=== PATIENT | male | born 1965 | race Two or more races ===

== ENCOUNTER → 2017-07-26 | Outpatient (CLI) | payer SELFPAY | LOC: HHS 09:51 | DX: Z12.83 Encounter for screening for malignant neoplasm of skin (principal) ==

== ENCOUNTER → 2018-04-11 | Outpatient (CLI) | payer OTHER ==
[2018-04-11 12:40] LABS: ABSOLUTE EOSINOPHILS # (AUTO) 0.1 10^3/uL (0.0-0.6); ABSOLUTE LYMPHOCYTES (AUTO) 1.9 10^3/uL (0.5-4.7); ABSOLUTE MONOCYTES (AUTO) 0.8 10^3/uL (0.1-1.4); ABSOLUTE NEUT (AUTO) 3.6 10^3/uL (1.7-8.2); BASOPHILS % (AUTO) 0.3 % (0-2); EOSINOPHILS % (AUTO) 1.5 % (0-6); HEMATOCRIT 42.7 % (37.9-51.0); HEMOGLOBIN 15.2 g/dL (13.5-17.0); LYMPHOCYTES % (AUTO) 29.3 % (13-45); MEAN CORPUSCULAR HEMOGLOBIN 31.1 pg (27.0-33.4); MEAN CORPUSCULAR HGB CONC 35.7 g/dL (32.0-36.0); MEAN CORPUSCULAR VOLUME 87 fl (80-97); MONOCYTES % (AUTO) 12.2 % (3-13); PLATELET COUNT 196 10^3/uL (150-450); SEGMENTED NEUTROPHILS % (AUTO) 56.7 % (42-78); TOTAL CELLS COUNTED % (AUTO) 100 %; WHITE BLOOD COUNT 6.3 10^3/uL (4.0-10.5)
[2018-04-11 13:02] LABS: ALANINE AMINOTRANSFERASE 64 U/L (21-72); ALBUMIN 4.2 g/dL (3.5-5.0); ALKALINE PHOSPHATASE 76 U/L (38-126); ANION GAP 8 (5-19); ASPARTATE AMINO TRANSFERASE 64 U/L (17-59); BILIRUBIN,DIRECT 0.1 mg/dL (0.0-0.4); BILIRUBIN,TOTAL 0.5 mg/dL (0.2-1.3); BLOOD UREA NITROGEN 15 mg/dL (7-20); CALCIUM 9.1 mg/dL (8.4-10.2); CARBON DIOXIDE 29 mmol/L (22-30); CHLORIDE 105 mmol/L (98-107); CHOLESTEROL 191.25 mg/dL (0-200); GLUCOSE 93 mg/dL (75-110); POTASSIUM 4.1 mmol/L (3.6-5.0); SODIUM 141.8 mmol/L (137-145); TRIGLYCERIDES 80 mg/dL (<150)
[2018-04-11 13:13] LABS: DIRECT LDL 139 mg/dL (<100)
== END ==
LOC: CCC 11:28
DX: I10 Essential (primary) hypertension (principal)
CPT/HCPCS: 36415; 80053; 80061; 83036; 84443; 85025

== ENCOUNTER → 2018-07-03 | Outpatient (CLI) | payer OTHER ==
--- NOTE | 2018-07-04 08:43 | RADIOLOGY REPORT (SQ) ---
EXAM DESCRIPTION: T SPINE AP/LAT COMPLETED DATE/TIME: 07/03/2018 5:17 pm REASON FOR STUDY: DORSALGIA M54.9 DORSALGIA, UNSPECIFIED COMPARISON: None. NUMBER OF VIEWS: Two views. TECHNIQUE: AP and lateral radiographic images acquired of the thoracic spine. LIMITATIONS: None. FINDINGS: MINERALIZATION: Normal. ALIGNMENT: Normal. No scoliosis. VERTEBRAE: No fracture or bone lesion. Maintained height, normal segmentation. DISCS: No significant loss of height or significant narrowing. No large osteophytes. HARDWARE: None in the spine. MEDIASTINUM AND SOFT TISSUES: Normal heart size and aortic contour. No soft tissue abnormality. VISUALIZED LUNG VERDUGO: Clear. OTHER: No other significant finding. IMPRESSION: NO SIGNIFICANT RADIOGRAPHIC FINDING IN THE THORACIC SPINE. TECHNICAL DOCUMENTATION: JOB ID: [id number] [email or web address]- All Rights Reserved Reading location - IP/workstation name: [email or web address]
== END ==
LOC: CCC 16:36
DX: M54.9 Dorsalgia, unspecified (principal)
CPT/HCPCS: 72070

== ENCOUNTER 2018-08-17 20:00 | Emergency (ER) | payer SELFPAY ==
[2018-08-18] MEDS ORDERED: NORMAL SALINE 1000 ML 1,000 ML IV ONE (00:26)
[2018-08-18] MEDS ORDERED: CLINDAMYCIN 900 MG/D5W RTU 900 MG/50 ML RTUPB IV ONE (00:26)
[2018-08-18] MEDS ORDERED: ONDANSETRON HCL INJ/PF 4 MG/2 ML SDV IV ONE (00:27)
[2018-08-18] MEDS ORDERED: MORPHINE SULFATE 10 MG/ML INJ IV ONE (00:27)
[2018-08-18] MEDS ORDERED: DEXAMETHASONE SOD PHOS INJ 10 MG/1 ML VIAL IV ONE (00:28)
[2018-08-18] MEDS ORDERED: ACETAMINOPHEN 325 MG TABLET PO ONE (00:28)
[2018-08-18 01:12] LABS: ABSOLUTE LYMPHOCYTES (AUTO) 1.9 10^3/uL (0.5-4.7); ABSOLUTE MONOCYTES (AUTO) 1.9 10^3/uL (0.1-1.4); ABSOLUTE NEUT (AUTO) 5.6 10^3/uL (1.7-8.2); BASOPHILS % (AUTO) 0.2 % (0-2); HEMATOCRIT 46.7 % (37.9-51.0); HEMOGLOBIN 16.2 g/dL (13.5-17.0); LYMPHOCYTES % (AUTO) 20.4 % (13-45); MEAN CORPUSCULAR HEMOGLOBIN 30.3 pg (27.0-33.4); MEAN CORPUSCULAR HGB CONC 34.7 g/dL (32.0-36.0); MEAN CORPUSCULAR VOLUME 87 fl (80-97); MONOCYTES % (AUTO) 19.9 % (3-13); PLATELET COUNT 188 10^3/uL (150-450); RED BLOOD COUNT 5.35 10^6/uL (4.35-5.55); RED CELL DISTRIBUTION WIDTH 12.9 % (11.5-14.0); SEGMENTED NEUTROPHILS % (AUTO) 59.5 % (42-78); TOTAL CELLS COUNTED % (AUTO) 100 %; WHITE BLOOD COUNT 9.3 10^3/uL (4.0-10.5)
[2018-08-18] MEDS ORDERED: KETOROLAC TROMETHAMINE INJ/PF 30 MG/1 ML SDV IV ONE (01:20)
[2018-08-18 01:24] LABS: ALANINE AMINOTRANSFERASE 40 U/L (21-72); ALBUMIN 4.6 g/dL (3.5-5.0); ALKALINE PHOSPHATASE 68 U/L (38-126); ANION GAP 10 (5-19); ASPARTATE AMINO TRANSFERASE 54 U/L (17-59); BILIRUBIN,DIRECT 0.2 mg/dL (0.0-0.4); BILIRUBIN,TOTAL 0.8 mg/dL (0.2-1.3); BLOOD UREA NITROGEN 14 mg/dL (7-20); CALCIUM 9.2 mg/dL (8.4-10.2); CARBON DIOXIDE 33 mmol/L (22-30); CHLORIDE 97 mmol/L (98-107); GLUCOSE 90 mg/dL (75-110); POTASSIUM 4.1 mmol/L (3.6-5.0); SODIUM 140.3 mmol/L (137-145)
[2018-08-18 01:30] LABS: INTERNATIONAL RATION (INR) 1.02; PROTHROMBIN TIME 13.4 SEC (11.4-15.4)
[2018-08-18 01:31] LABS: PARTIAL THROMBOPLASTIN TIME 36.3 SEC (23.5-35.8)
[2018-08-18 03:03] VITALS: BP 132/75
[2018-08-18 03:06] LABS: APPEARANCE,URINE CLEAR; BILIRUBIN,URINE NEGATIVE (NEGATIVE); COLOR,URINE STRAW; GLUCOSE, URINE NEGATIVE (NEGATIVE); KETONES,URINE NEGATIVE (NEGATIVE); LEUKOCYTE ESTERASE,URINE NEGATIVE (NEGATIVE); NITRITE,URINE NEGATIVE (NEGATIVE); PROTEIN,URINE NEGATIVE (NEGATIVE); URINE SPECIFIC GRAVITY 1.008; UROBILINOGEN,URINE NEGATIVE mg/dL (<2.0)
--- NOTE | 2018-08-18 03:20 | ER Document Report ---
ED ENT - General Chief Complaint: Mouth Problem Stated Complaint: THROAT PAIN Time Seen by Provider: 08/17/18 23:56 Mode of Arrival: Ambulatory Information source: Patient TRAVEL OUTSIDE OF THE [place] IN LAST 30 DAYS: No - HPI Patient complains to provider of: Throat problem Onset: Other - Ongoing since the past 5 days. Onset/Duration: Sudden Quality of pain: Sharp Severity: Moderate Pain Level: 3 Location of pain: Throat Associated symptoms: Sore throat, Swollen glands, Other - Mouth sores Similar symptoms previously: No Recently seen / treated by doctor: No - Related Data Allergies/Adverse Reactions: Penicillins Allergy (Verified 08/18/18 00:36) Past Medical History - Social History Smoking Status: Never Smoker Chew tobacco use (# tins/day): No Frequency of alcohol use: None Drug Abuse: None Family History: Reviewed & Not Pertinent Patient has suicidal ideation: No Patient has homicidal ideation: No Renal/ Medical History: Denies: Hx Peritoneal Dialysis Review of Systems - Review of Systems Constitutional: Fever EENT: Throat pain, Mouth pain, Other - Sore throat Cardiovascular: No symptoms reported Respiratory: No symptoms reported Gastrointestinal: No symptoms reported Genitourinary: No symptoms reported Male Genitourinary: No symptoms reported Musculoskeletal: No symptoms reported Skin: No symptoms reported Hematologic/Lymphatic: No symptoms reported Neurological/Psychological: No symptoms reported -: Yes All other systems reviewed and negative Physical Exam - Vital signs Vitals: Temp Pulse Resp BP Pulse Ox 101.8 F H 99 16 137/84 H 98 08/17/18 20:32 08/17/18 20:32 08/17/18 20:32 08/17/18 20:32 08/17/18 20:32 Interpretation: Normal - General General appearance: Appears well, Alert - HEENT Head: Normocephalic, Atraumatic Eyes: Normal Conjunctiva: Normal Cornea: Normal Pupils: PERRL Mouth/Lips: Lesions, Other - Mild soreness Mucous membranes: Moist, Other - Halitosis is present. Pharynx: Erythema, Tonsillar hypertrophy Neck: Anterior cervical chain - Respiratory Respiratory status: No respiratory distress Chest status: Nontender Breath sounds: Normal Chest palpation: Normal - Cardiovascular Rhythm: Regular Heart sounds: Normal auscultation Murmur: No - Abdominal Inspection: Normal Distension: No distension Bowel sounds: Normal Tenderness: Nontender Organomegaly: No organomegaly - Back Back: Normal, Nontender - Extremities General upper extremity: Normal inspection, Nontender, Normal color, Normal ROM, Normal temperature General lower extremity: Normal inspection, Nontender, Normal color, Normal ROM, Normal temperature, Normal weight bearing. No: Silverio's sign - Neurological Neuro grossly intact: Yes Cognition: Normal Orientation: AAOx4 Nacho Coma Scale Eye Opening: Spontaneous Nacho Coma Scale Verbal: Oriented Nacho Coma Scale Motor: Obeys Commands [place] Coma Scale Total: 15 Speech: Normal Motor strength normal: LUE, RUE, LLE, RLE Sensory: Normal - Psychological Associated symptoms: Normal affect, Normal mood - Skin Skin Temperature: Warm Skin Moisture: Dry Skin Color: Normal Course - Re-evaluation Re-evalutation: 08/18/18 03:18 Patient is feeling much better and wants to be discharged home. - Vital Signs Vital signs: Temp Pulse Resp BP Pulse Ox 99.3 F 99 15 132/75 H 97 08/18/18 03:01 08/17/18 20:32 08/18/18 03:01 08/18/18 03:01 08/18/18 03:01 - Laboratory Result Diagrams: 08/18/18 01:00 08/18/18 01:00 Laboratory results interpreted by me: 08/18/18 08/18/18 08/18/18 01:00 01:00 01:00 Monocytes % 19.9 H Absolute Monocytes 1.9 H APTT 36.3 H Chloride 97 L Carbon Dioxide 33 H Discharge - Discharge Clinical Impression: Acute pharyngitis Qualifiers: Pharyngitis/tonsillitis etiology: unspecified etiology Qualified Code(s): J02.9 - Acute pharyngitis, unspecified Acute tonsillitis Qualifiers: Pharyngitis/tonsillitis etiology: unspecified etiology Qualified Code(s): J03.90 - Acute tonsillitis, unspecified URI (upper respiratory infection) Qualifiers: URI type: unspecified URI Qualified Code(s): J06.9 - Acute upper respiratory infection, unspecified Condition: Stable Disposition: HOME, SELF-CARE Instructions: Upper Respiratory Illness ([facility]), Fever ([facility]), Tonsillitis ([facility]) Additional Instructions: Please follow-up with your doctor on Monday morning. Take your medications as p rescribed. Return to the emergency room if your condition worsens. Prescriptions: Clindamycin HCl [Cleocin 150 mg Capsule] 450 mg PO TID 10 Days #90 capsule Ibuprofen [Ibu] 800 mg PO HSP PRN #20 tablet PRN Reason: Pain Scale Of 3 Ondansetron [Zofran Odt 4 mg Tablet] 1 tab PO Q4H PRN #20 tab.rapdis PRN Reason: For Nausea/Vomiting Referrals: KERI ESTEBAN MD [ACTIVE STAFF] - Follow up as needed
== END 2018-08-18 03:30 | disposition home or self-care (01) ==
LOC: ER 20:00
DX: J03.90 Acute tonsillitis, unspecified (principal); J06.9 Acute upper respiratory infection, unspecified; K13.79 Other lesions of oral mucosa; R50.9 Fever, unspecified; R19.6 Halitosis; Z88.0 Allergy status to penicillin
CPT/HCPCS: 99283; 96375; 96365; 96366; 36415; 87040; 87070; 87086; 87880; 85025; 85610; 85730; 80053; 81001; 83605; J3490; J2405; J7030; J1100

== ENCOUNTER 2019-04-13 10:51 | Emergency (ER) | payer OTHER ==
[2019-04-13] MEDS ORDERED: ONDANSETRON 4 MG TAB.RAPDIS PO ONE (11:11)
[2019-04-13] MEDS ORDERED: NORMAL SALINE 1000 ML 1,000 ML IV ONE (11:12)
--- NOTE | 2019-04-13 11:17 | ER Document Report ---
ED Medical Screen (RME) - General Chief Complaint: Vomiting/Diarrhea Stated Complaint: BACK PAIN,VOMITING Time Seen by Provider: 04/13/19 11:06 Notes: HPI: 54-year-old male presenting to the emergency department with multiple complaints. Patient states that 2 days ago he was moving his father and after moving his father developed an exertional type chest discomfort and back discomfort. Does not know if he hurt his back. Patient states that the discomfort continued yesterday and he began having nausea vomiting and diarrhea. States he threw up at least 9 times. Complains of mild epigastric and left- sided abdominal cramping. No fever. Patient also complains of not being able to sleep at night because he has a constant sense of agitation or flight of ideas during the evening I have greeted and performed a rapid initial assessment of this patient. A comprehensive ED assessment and evaluation of the patient, analysis of test results and completion of the medical decision making process will be conducted by additional ED providers PHYSICAL EXAMINATION: GENERAL: Well-appearing, well-nourished and in mild acute distress. HEAD: Atraumatic, normocephalic. EYES: sclera anicteric, conjunctiva are normal. ENT: Moist mucous membranes. NECK: Normal range of motion LUNGS: Normal work of breathing, clear to auscultation HEART: 2+ radial pulses bilaterally, regular rate and rhythm ABD: limited by positioning for exam in triage. Mild tenderness in the left lateral abdomen on palpation EXTREMITIES: no pitting or edema. No cyanosis. NEUROLOGICAL: No focal neurological deficits. Moves all extremities spontaneously and on command. PSYCH: Normal mood, normal affect. SKIN: Warm, Dry, normal turgor, no rashes or lesions noted. TRAVEL OUTSIDE OF THE [place] IN LAST 30 DAYS: No - Related Data Allergies/Adverse Reactions: Penicillins Allergy (Verified 04/13/19 11:07) Home Medications: lisinopril/hctz. amolidipine. omeprazole Past Medical History - Social History Chew tobacco use (# tins/day): No Frequency of alcohol use: None Drug Abuse: None Renal/ Medical History: Denies: Hx Peritoneal Dialysis Physical Exam - Vital signs Vitals: Temp Pulse Resp BP Pulse Ox 98.9 F 102 H 18 148/101 H 97 04/13/19 11:03 04/13/19 11:03 04/13/19 11:03 04/13/19 11:03 04/13/19 11:03 Course - Vital Signs Vital signs: Temp Pulse Resp BP Pulse Ox 98.9 F 102 H 18 148/101 H 97 04/13/19 11:03 04/13/19 11:03 04/13/19 11:03 04/13/19 11:03 04/13/19 11:03
[2019-04-13 11:41] LABS: APPEARANCE,URINE CLEAR; BILIRUBIN,URINE NEGATIVE (NEGATIVE); COLOR,URINE YELLOW; GLUCOSE, URINE NEGATIVE (NEGATIVE); KETONES,URINE NEGATIVE (NEGATIVE); LEUKOCYTE ESTERASE,URINE NEGATIVE (NEGATIVE); NITRITE,URINE NEGATIVE (NEGATIVE); PROTEIN,URINE 100 mg/dL (NEGATIVE); URINE SPECIFIC GRAVITY 1.027; UROBILINOGEN,URINE NEGATIVE mg/dL (<2.0)
--- NOTE | 2019-04-13 12:12 | RADIOLOGY REPORT (SQ) ---
EXAM DESCRIPTION: CHEST 2 VIEWS COMPLETED DATE/TIME: 04/13/2019 11:57 am REASON FOR STUDY: chest pain COMPARISON: None. EXAM PARAMETERS: NUMBER OF VIEWS: two views TECHNIQUE: Digital Frontal and Lateral radiographic views of the chest acquired. RADIATION DOSE: NA LIMITATIONS: none FINDINGS: LUNGS AND PLEURA: No opacities, masses or pneumothorax. No pleural effusion. MEDIASTINUM AND HILAR STRUCTURES: No masses or contour abnormalities. HEART AND VASCULAR STRUCTURES: Heart normal size. No evidence for failure. BONES: No acute findings. HARDWARE: None in the chest. OTHER: No other significant finding. IMPRESSION: NO ACUTE RADIOGRAPHIC FINDING IN THE CHEST. TECHNICAL DOCUMENTATION: JOB ID: [id number] 2010 [employer]- All Rights Reserved Reading location - IP/workstation name: [email or web address]
[2019-04-13 12:15] LABS: ABSOLUTE LYMPHOCYTES (AUTO) 0.7 10^3/uL (0.5-4.7); ABSOLUTE MONOCYTES (AUTO) 1.6 10^3/uL (0.1-1.4); BASOPHILS % (AUTO) 0.1 % (0-2); HEMATOCRIT 47.7 % (37.9-51.0); LYMPHOCYTES % (AUTO) 5.3 % (13-45); MEAN CORPUSCULAR HGB CONC 35.6 g/dL (32.0-36.0); MEAN CORPUSCULAR VOLUME 87 fl (80-97); MONOCYTES % (AUTO) 12.2 % (3-13); PLATELET COUNT 186 10^3/uL (150-450); RED BLOOD COUNT 5.49 10^6/uL (4.35-5.55); RED CELL DISTRIBUTION WIDTH 13.6 % (11.5-14.0); SEGMENTED NEUTROPHILS % (AUTO) 82.4 % (42-78); TOTAL CELLS COUNTED % (AUTO) 100 %; WHITE BLOOD COUNT 13.4 10^3/uL (4.0-10.5)
[2019-04-13 12:32] LABS: ALBUMIN 4.5 g/dL (3.5-5.0); ALKALINE PHOSPHATASE 72 U/L (38-126); ANION GAP 13 (5-19); ASPARTATE AMINO TRANSFERASE 54 U/L (17-59); BILIRUBIN,DIRECT 0.2 mg/dL (0.0-0.4); BLOOD UREA NITROGEN 23 mg/dL (7-20); CALCIUM 8.8 mg/dL (8.4-10.2); CARBON DIOXIDE 26 mmol/L (22-30); CHLORIDE 98 mmol/L (98-107); GLUCOSE 120 mg/dL (75-110); POTASSIUM 3.1 mmol/L (3.6-5.0); TOTAL PROTEIN 7.8 g/dL (6.3-8.2)
[2019-04-13] MEDS ORDERED: MORPHINE SULFATE 10 MG/ML INJ IV ONE (14:15)
[2019-04-13] MEDS ORDERED: POTASSIUM CHLORIDE 20 MEQ PACKET PO ONE (15:11)
--- NOTE | 2019-04-13 15:17 | ER Document Report ---
ED General - General TRAVEL OUTSIDE OF THE [place] IN LAST 30 DAYS: No - Related Data Home Medications: lisinopril/hctz. amolidipine. omeprazole <RONNA ZAMBRANO - Last Filed: 04/13/19 18:10> <ROSYPATRICIAARA - Last Filed: 04/13/19 20:17> - General Chief Complaint: Vomiting/Diarrhea Stated Complaint: BACK PAIN,VOMITING Time Seen by Provider: 04/13/19 11:06 Notes: 54-year-old male presents with central intermittent chest pain and low back pain for the past 2 days. Patient states it started after transferring dad from wheelchair to recliner. Patient states he also had nausea, vomiting, and diarrhea that started yesterday. Pt also has left sided abdominal pain. Patient denies any blood in emesis or stool. Patient denies any fever. (RONNA ZAMBRANO) - Related Data Allergies/Adverse Reactions: Penicillins Allergy (Verified 04/13/19 11:07) Past Medical History - Social History Smoking Status: Unknown if Ever Smoked Chew tobacco use (# tins/day): No Frequency of alcohol use: None Drug Abuse: None Family History: Reviewed & Not Pertinent Patient has suicidal ideation: No Patient has homicidal ideation: No Renal/ Medical History: Denies: Hx Peritoneal Dialysis <RONNA ZAMBRANO - Last Filed: 04/13/19 18:10> Review of Systems <RONNA ZAMBRANO - Last Filed: 04/13/19 18:10> - Review of Systems Notes: Constitutional: Negative for fever. HENT: Negative for sore throat. Eyes: Negative for visual changes. Cardiovascular: Positive for chest pain. Respiratory: Negative for shortness of breath. Gastrointestinal: Positive for abdominal pain, vomiting or diarrhea. Genitourinary: Negative for dysuria. Musculoskeletal: Positive for back pain. Skin: Negative for rash. Neurological: Negative for headaches, weakness or numbness. 10 point ROS negative except as marked above and in HPI. (RONNA ZAMBRANO) Physical Exam <RONNA ZAMBRANO - Last Filed: 04/13/19 18:10> - Vital signs Vitals: Temp Pulse Resp BP Pulse Ox 98.9 F 102 H 18 148/101 H 97 04/13/19 11:03 04/13/19 11:03 04/13/19 11:03 04/13/19 11:03 04/13/19 11:03 - Notes Notes: GENERAL: Well-appearing, well-nourished and in no acute distress. HEAD: Atraumatic, normocephalic. EYES: Extraocular movements intact, sclera anicteric, conjunctiva are normal. NECK: Normal range of motion, supple without lymphadenopathy or JVD. LUNGS: Breath sounds clear to auscultation bilaterally and equal. No wheezes rales or rhonchi. HEART: Regular rate and rhythm without murmurs, rubs or gallops. ABDOMEN: Soft, tenderness to left side. No guarding, no rebound. No masses appreciated. BACK: Tenderness to L spine. EXTREMITIES: Normal range of motion, no pitting or edema. No clubbing or cyanosis. NEUROLOGICAL: Cranial nerves II through XII grossly intact. Normal speech, normal gait. PSYCH: Normal mood, normal affect. SKIN: Warm, Dry, normal turgor, no rashes or lesions noted. (RONNA ZAMBRANO) Course - Laboratory Result Diagrams: 04/13/19 17:03 04/13/19 11:52 <RONNA ZAMBRANO - Last Filed: 04/13/19 18:10> - Laboratory Result Diagrams: 04/13/19 17:03 04/13/19 11:52 <KISHAN GALLEGOS - Last Filed: 04/13/19 20:17> - Re-evaluation Re-evalutation: 04/13/19 Nontoxic, well appearing 54 y/o male presents with chest pain/low back pain after transferring his father from wheelchair to recliner two days ago. Pt also had n//v/d that started yesterday with left sided abd pain. Abd soft, tenderness to left side. Nonsurgical abdomen. Chest - reproducible to palpation. RRR. Lungs CTA b/l. L spine tenderness. Initial workup shows WBC 13.4, CMP K 3.1, BUN 23. Trop 0.033 (nothing to compare to in system). Morphine, CT abdomen/pelvis with IV contrast, L spine XR ordered. 04/13/19 16:36 Trop 0.123. NSTEMI. Initiated ASA and heparin. Called [facility] to initiate transfer. Spoke to Paula. 04/13/19 16:44 Informed pt that he is having a NSTEMI and that he needs to be transferred. 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 Informed pt that he needs to be transferred due to no hop farmer here at this facility and he may if he does not receive care. Pt voices understanding. 04/13/19 17:17 Spoke to geological engineering teacher remotely piloted vehicle controller, Dr. Lupillo Christian, at [facility] who states pt sounds appropriate for transfer. Requests speaking to hospitalist for admission. Transfer Center to page out hospitalist remotely piloted vehicle controller. 04/13/19 17:[address] Annalise Gupta, hospitalist, who accepted pt for transfer. (RONNA ZAMBRANO) 04/13/19 20:17 Report received from BERNICE Hightower. Transport crew is here for patient. Patient complains of mild dizziness, vital signs otherwise stable. Patient stable for transfer at this time. (KISHAN GALLEGOS) - Vital Signs Vital signs: Temp Pulse Resp BP Pulse Ox 99.0 F 102 H 19 120/76 97 04/13/19 19:53 04/13/19 11:03 04/13/19 20:07 04/13/19 20:07 04/13/19 20:07 - Laboratory Laboratory results interpreted by me: 04/13/19 04/13/19 04/13/19 11:24 11:52 11:52 WBC 13.4 H Lymph % (Auto) 5.3 L Gall[place] % (Auto) Absolute Neuts (auto) 11.0 H Absolute Monos (auto) 1.6 H Seg Neutrophils % 82.4 H Potassium 3.1 L BUN 23 H Glucose 120 H Urine Protein 100 H Urine Blood SMALL H 04/13/19 17:03 WBC 14.0 H Lymph % (Auto) 8.0 L Gall[place] % (Auto) 13.2 H Absolute Neuts (auto) 11.0 H Absolute Monos (auto) 1.8 H Seg Neutrophils % 78.6 H Potassium BUN Glucose Urine Protein Urine Blood Discharge - Discharge Admitting Provider: Dr. Gupta <RONNA ZAMBRANO - Last Filed: 04/13/19 18:10> <KISHAN GALLEGOS - Last Filed: 04/13/19 20:17> - Discharge Clinical Impression: NSTEMI (non-ST elevated myocardial infarction), Nausea, vomiting, and diarrhea Chest pain Qualifiers: Chest pain type: unspecified Qualified Code(s): R07.9 - Chest pain, unspecified Low back pain Qualifiers: Chronicity: acute Back pain laterality: midline Sciatica presence: without sciatica Qualified Code(s): M54.5 - Low back pain Abdominal pain Qualifiers: Abdominal location: unspecified location Qualified Code(s): R10.9 - Unspecified abdominal pain Condition: Stable Disposition: [facility]
--- NOTE | 2019-04-13 15:38 | RADIOLOGY REPORT (SQ) ---
EXAM DESCRIPTION: CT ABD/PELVIS WITH IV ONLY COMPLETED DATE/TIME: 04/13/2019 3:08 pm REASON FOR STUDY: abd pain, nausea/vomiting/diarrhea, back pain COMPARISON: None. TECHNIQUE: CT scan of the abdomen and pelvis performed using helical scanning technique with dynamic intravenous contrast injection. No oral contrast. Images reviewed with lung, soft tissue, and bone windows. Reconstructed coronal and sagittal MPR images reviewed. Delayed images for evaluation of the urinary system also acquired. All images stored on PACS. All CT scanners at this facility use dose modulation, iterative reconstruction, and/or weight based d osing when appropriate to reduce radiation dose to as low as reasonably achievable (ALARA). [facility]: Dose Right [facility]: CareDose [facility]: Dose Right [facility]: Teradose 4D [facility]: [employer] CONTRAST TYPE AND DOSE: contrast/concentration: Isovue 350.00 mg/ml; Total Contrast Delivered: 100.0 ml; Total Saline Delivered: 72.0 ml RENAL FUNCTION: BUN 23 creatinine 0.8. RADIATION DOSE: CT Rad equipment meets quality standard of care and radiation dose reduction techniq ues were employed. CTDIvol: 11.9 - 16.4 mGy. DLP: 1722 mGy-cm.. LIMITATIONS: None. FINDINGS: LOWER CHEST: No significant findings. No nodules or infiltrates. LIVER: Normal size. Diffuse fatty infiltration. No masses. No dilated ducts. SPLEEN: Normal size. No focal lesions. PANCREAS: No masses. No significant calcifications. No adjacent inflammation or peripancreatic fluid collections. Pancreatic duct not dilated. GALLBLADDER: No identified stones by CT criteria. No inflammatory changes to suggest cholecystitis. ADRENAL GLANDS: No significant masses or asymmetry. RIGHT KIDNEY AND URETER: No solid masses. No significant calcifications. No hydronephrosis or hyd roureter. LEFT KIDNEY AND URETER: No solid masses. No significant calcifications. No hydronephrosis or hydr oureter. AORTA AND VESSELS: No aneurysm. No dissection. Renal arteries, SMA, celiac without stenosis. RETROPERITONEUM: No retroperitoneal adenopathy, hemorrhage or masses. BOWEL AND PERITONEAL CAVITY: Dilated small bowel loops in the midabdomen. The distal small bowel is not distended. No masses or inflammatory changes. No free fluid or peritoneal masses. APPENDIX: Normal. PELVIS: No mass. No free fluid. Normal bladder. ABDOMINAL WALL: No masses. No hernias. BONES: No significant or acute findings. OTHER: No other significant finding. IMPRESSION: 1. DILATED SMALL BOWEL LOOPS IN THE MID ABDOMEN. THE DISTAL SMALL BOWEL IS NOT DISTENDED. CONCERNIN G FOR DEVELOPING MECHANICAL OBSTRUCTION. 2. FATTY INFILTRATION OF THE LIVER. 3. NO OTHER SIGNIFICANT OR ACUTE FINDING IN THE ABDOMEN OR PELVIS ON CT SCAN WITH IV CONTRAST. TECHNICAL DOCUMENTATION: JOB ID: [id number] Quality ID # [id number]: Final reports with documentation of one or more dose reduction techniques (e.g., Au tomated exposure control, adjustment of the mA and/or kV according to patient size, use of iterative reconstruction technique) 2010 [employer]- All Rights Reserved Reading location - IP/workstation name: [email or web address]
--- NOTE | 2019-04-13 15:39 | RADIOLOGY REPORT (SQ) ---
EXAM DESCRIPTION: L SPINE WHOLE COMPLETED DATE/TIME: 04/13/2019 3:24 pm REASON FOR STUDY: low back pain COMPARISON: None. NUMBER OF VIEWS: Five views including obliques. TECHNIQUE: AP, lateral, oblique, and sacral radiographic images acquired of the lumbar spine. LIMITATIONS: None. FINDINGS: MINERALIZATION: Normal. SEGMENTATION: Normal. No transitional anatomy. ALIGNMENT: Normal. VERTEBRAE: Maintained height. No fracture or worrisome bone lesion. DISCS: Preserved height. No significant osteophytes or end plate irregularity. POSTERIOR ELEMENTS: Pedicles and facets are intact. No pars defect or posterior arch defects. HARDWARE: None in the spine. PARASPINAL SOFT TISSUES: Normal. PELVIS: Intact as visualized. No fractures or worrisome bone lesions. SI joints intact. OTHER: No other significant finding. IMPRESSION: NORMAL 5 VIEW LUMBAR SPINE. TECHNICAL DOCUMENTATION: JOB ID: [id number] 2010 [employer]- All Rights Reserved Reading location - IP/workstation name: [email or web address]
[2019-04-13] MEDS ORDERED: HEPARIN SODIUM,PORCINE/D5W 25,000 UNIT/250 ML RTUINJ IV PRN (16:29)
[2019-04-13] MEDS ORDERED: ASPIRIN 81 MG TABLET, CHEWABLE PO ONE (16:29)
[2019-04-13] MEDS ORDERED: HEPARIN SOD (PORCINE) 1,000 UNIT/ML 10 ML VIAL IV ONE (16:29)
[2019-04-13 17:19] LABS: ABSOLUTE LYMPHOCYTES (AUTO) 1.1 10^3/uL (0.5-4.7); ABSOLUTE MONOCYTES (AUTO) 1.8 10^3/uL (0.1-1.4); BASOPHILS % (AUTO) 0.2 % (0-2); HEMATOCRIT 47.6 % (37.9-51.0); HEMOGLOBIN 16.5 g/dL (13.5-17.0); MEAN CORPUSCULAR HEMOGLOBIN 30.2 pg (27.0-33.4); MEAN CORPUSCULAR HGB CONC 34.7 g/dL (32.0-36.0); MEAN CORPUSCULAR VOLUME 87 fl (80-97); MONOCYTES % (AUTO) 13.2 % (3-13); PLATELET COUNT 176 10^3/uL (150-450); RED BLOOD COUNT 5.47 10^6/uL (4.35-5.55); RED CELL DISTRIBUTION WIDTH 13.7 % (11.5-14.0); SEGMENTED NEUTROPHILS % (AUTO) 78.6 % (42-78); TOTAL CELLS COUNTED % (AUTO) 100 %
[2019-04-13 17:21] LABS: INTERNATIONAL RATION (INR) 1.11; PROTHROMBIN TIME 14.3 SEC (11.4-15.4)
[2019-04-13 17:22] LABS: PARTIAL THROMBOPLASTIN TIME 35.8 SEC (23.5-35.8)
--- NOTE | 2019-04-13 17:27 | EKG REPORT ---
SEVERITY:- OTHERWISE NORMAL ECG - SINUS RHYTHM BORDERLINE LEFT AXIS DEVIATION : Confirmed by: Magi Raphael MD 13-Apr-2019 17:26:48
[2019-04-13] MEDS ORDERED: HEPARIN SOD (PORCINE) 1,000 UNIT/ML 10 ML VIAL IV PRN (19:30)
[2019-04-13 20:13] VITALS: BP 120/76
== END 2019-04-13 20:19 | disposition short-term general hospital (02) ==
LOC: ER 10:51
DX: I21.4 Non-ST elevation (NSTEMI) myocardial infarction (principal); R07.9 Chest pain, unspecified; M54.5 Low back pain; R11.2 Nausea with vomiting, unspecified; R19.7 Diarrhea, unspecified; R10.9 Unspecified abdominal pain; R10.819 Abdominal tenderness, unspecified site; R42 Dizziness and giddiness; Z79.899 Other long term (current) drug therapy; Z88.0 Allergy status to penicillin
CPT/HCPCS: 93005; 96376; 99285; 96361; 96365; 96366; 36415; 83690; 83735; 85025; 85610; 85730; 80053; 81001; 84484; 71046; 72110; 74177; 93010; J1644 ×2; S0119; J7030; J3490